=== PATIENT | male | born 1955 | race Caucasian/White ===

== ENCOUNTER 2020-07-18 19:08 | Inpatient (IN) | payer BC ==
[~2020-07-18] VITALS: Ht 180.3 cm; Wt 78.5 kg
--- NOTE | ~2020-07-18 | CON ---
[address] [address] CONSULTATION Name: ANGÉLICA BELTRAN Room: [address] IN .R.#: [id number] Admission: 07/18/20 Attend Phys: Hiren Angulo Discharge: Date of : 57 Report #: [id number] THIS REPORT FOR: cc: KASEY - No family physician/PCP KASEY - No family physician/PCP ~ Tam Cosby MD DATE OF SERVICE: 07/23/2020 PRIMARY CARE PHYSICIAN: ____ Please note at the time of this dictation, the patient was seen and physically examined by myself. REASON FOR CONSULTATION: Elevated LFTs. HISTORY OF PRESENT ILLNESS: This is a 65-year-old male who presented to the Emergency Room with worsening of his rib pain, which had been ongoing bilaterally for the last 4 days and becoming more severe, more so on the right than on the left and it was going around into the middle of his back. He also had a complaint of a cough and that all this the cough and rib pain, which has progressively gotten worse, had been going on for the last 4 days prior to admission. It was noted at that time that he had bilateral pneumonia and was admitted for this reason. At the time of admission, his alkaline phosphatase was 122. The rest of his liver enzymes were completely normal. As he has been here in the hospital, they have continued to elevate each day that he has been here. The patient has been recently started on Plaquenil about a month ago by his PCP for his rheumatoid arthritis. He has also been on lisinopril long-term for some time. Naproxen, he has been taking that as well for a long period of time, which was just recently stopped on this admission. He did get cefepime IV up until yesterday when he was switched over to doxycycline and Augmentin as well. The only other new medicine that he has started to take is glucosamine and ____ with vitamin D for his rheumatoid arthritis. The patient denies ever having any upper or lower scopes done. He does state he has some issues with GERD off and on and he takes an ajey-nws-bsbhtfa medication to help with his acid reflux when it occurs. ALLERGIES: No known drug allergies. MEDICATIONS: From home include his lisinopril, prednisone, levothyroxine, naproxen and Plaquenil. PAST MEDICAL HISTORY: Rheumatoid arthritis since 2006, hypothy[place] [address] CONSULTATION Name: ANGÉLICA BELTRAN Room: [address]#: [id number] Admission: 07/18/20 Attend Phys: Hiren Angulo Discharge: Date of : 57 Report #: [id number] PAST SURGICAL HISTORY: Left inguinal hernia repair and right carpal tunnel release. FAMILY HISTORY: Mother, liver cancer. SOCIAL HISTORY: . Denies any alcohol, tobacco or illegal drug use at this time. REVIEW OF SYSTEMS: Twelve-point review of systems is essentially negative except what is mentioned in the HPI. PHYSICAL EXAMINATION: VITAL SIGNS: Temperature 35.9, pulse 82, respirations 18, blood pressure 148/81. HEART: Regular rate and rhythm. LUNGS: Clear, slightly diminished. ABDOMEN: Soft, positive bowel sounds in all 4 quadrants with no masses or tenderness noted. LABORATORY DATA: Hemoglobin 13.9, white count is 13.9, platelets 489. CRP was 22.4, GFR is 75. PT is 11.9, INR is 1. Total bilirubin 0.4, alkaline phosphatase on is 122 and is now up to 241, ALT on admission was 36 and now 401. AST on admission was 33 and is now 211. Ultrasound of the abdomen was essentially normal with no ductal dilatation noted. IMPRESSION: 1. Elevated liver function tests, likely medication induced, most recent medication that was started was Plaquenil about a month ago, but may consider numerous other agents naproxen, Augmentin, lisinopril can also have an affect as well. 2. Rheumatoid arthritis. 3. Leukocytosis for long-term steroid use. 4. Gastroesophageal reflux disease. 5. Family history of liver cancer in mother. 6. Anticoagulant therapy, Eliquis. PLAN: 1. We will discontinue his Plaquenil since that is the most recent medication that was started and can cause fulminant liver failure. 2. Acute hepatitis panel pending. We will add TARA, ASMA, AMA, and GGTP. 3. CMP tomorrow in the a.m. 4. The patient has never had any endoscopic evaluation, recommended EGD for his GERD and screening colonoscopy as an outpatient. 5. Further recommendations to be made once Dr. Cosby sees the patient later [address] [place] [address] CONSULTATION Name: ANGÉLICA BELTRAN Room: [address] IN M.R.#: [id number] Admission: 07/18/20 Attend Phys: Hiren Angulo Discharge: Date of : 57 Report #: [id number] today. Thank you for allowing us to participate in this patient's care. Please do not hesitate to call with any questions in regard to this consult. By: [id number] Cosby MD /vasquez
[~2020-07-18 19:08] MED LIST: HYDROCODONE-AP1 EAC6 PO; LEVOTHYROXIN0.025 MG PO; LISINOPRIL10 MG PO; NAPROSYN500 MG PO; PREDNISONE 5 MG5 M1 PO
[2020-07-18 19:19] VITALS: BP 175/89
[2020-07-18 20:48] LABS: ABSOLUTE BASOPHILS 0.2 thou/uL (0.0-0.2); ABSOLUTE LYMPHOCYTES 0.9 thou/uL (0.8-5.3); ABSOLUTE MONOCYTES 2.3 thou/uL (0.0-1.2); ABSOLUTE NEUTROPHILS 13.8 thou/uL (1.6-8.1); BASOPHILS 0.9 %; EOSINOPHILS 0.1 %; HEMATOCRIT 43.9 % (42.0-52.0); HEMOGLOBIN 14.6 gm/dL (14.0-18.0); LYMPHOCYTES 5.3 %; MCHC 33.2 g/dL (28.0-37.0); MCV 93.4 fL (80.0-100.0); MONOCYTES 13.3 %; MPV 6.9 fl. (7.2-11.1); NUCLEATED RBCS 0 /100WBC; PLATELET COUNT* 341 thou/uL (150-400); POLYS 80.4 %; RDW-CV 13.4 % (10.5-14.5); WBC 17.1 thou/uL (4.0-11.0)
[2020-07-18 20:55] LABS: CALCIUM 8.4 mg/dL (8.5-10.1); CREATININE 1.3 mg/dL (0.6-1.3); POTASSIUM 4.2 mmol/L (3.5-5.1)
[2020-07-18 21:00] LABS: ALBUMIN 2.5 g/dL (3.4-5.0); TOTAL PROTEIN 7.2 g/dL (6.4-8.2)
[2020-07-18 22:36] LABS: PCO2 33.5 mmHg (35.0-45.0); PO2 83.8 mmHg (75.0-100.0); pH 7.425 (7.340-7.450)
[2020-07-19] VITALS (7 sets, daily range): BP systolic 103–132; BP diastolic 55–77
[2020-07-19 10:42] LABS: URINE BILIRUBIN NEGATIVE (Negative); URINE BLOOD NEGATIVE (Negative); URINE CLARITY CLEAR; URINE COLOR YELLOW; URINE GLUCOSE-RANDOM NEGATIVE (Negative); URINE KETONES NEGATIVE (Negative); URINE LEUKOCYTES-REFLEX NEGATIVE (Negative); URINE NITRITE-REFLEX NEGATIVE (Negative); URINE PROTEIN NEGATIVE (Negative); URINE SPECIFIC GRAVITY >= 1.030 (1.005-1.030); URINE UROBILINOGEN 0.2 E.U./dl (0.2-1.0)
--- NOTE | 2020-07-19 14:07 | EKG ---
[place] [address] ELECTROCARDIOGRAM REPORT Name: ANGÉLICA BELTRAN Room: [place] [address] ADM IN [facility]#: [id number] Admission: 07/18/20 Attend Phys: Latanya Bello Discharge: Date of : 57 Date of Service: 07/18/202026 Report #: [id number] THIS REPORT FOR: //name// [facility] ED Test Date: 2020-07-18 Test Time: 20:27:50 Pat Name: ANGÉLICA BELTRAN Department: Room: [facility] Gender: M Guest Request Runner: [place] : 1955 Requested By: Mary Blas Order Number: [id number] MD: Jamie Mcgrath Measurements Intervals [place] Rate: 100 P: 36 LA: 130 QRS: -25 QRSD: 106 T: 33 QT: 350 QTc: 452 Interpretive Statements Sinus tachycardia Borderline left axis deviation RSR' in V1 or V2, probably normal variant Minimal ST elevation, inferior leads Baseline wander in lead(s) V3 Compared to ECG 03/08/2016 15:29:31 Sinus rhythm no longer present Atrial premature complex(es) no longer present Right ventricular hypertrophy no longer present Left ventricular hypertrophy no longer present Myocardial infarct finding no longer present ST (T wave) deviation still present Electronically Signed On 07-19-2020 14:07:28 [employer] by Jamie Mcgrath [email or web address] <ELECTRONICALLY SIGNED> By: Sue Mcgrath MD, [facility] 07/19/201406 26 26 Sue Mcgrath MD, [facility] /EPI
[2020-07-19] MEDS ORDERED: PLAQUENIL200 MG PO (16:14)
[2020-07-19 19:22] LABS: CALCIUM 8.3 mg/dL (8.5-10.1); POTASSIUM 4.1 mmol/L (3.5-5.1)
[2020-07-19 19:25] LABS: MAGNESIUM 2.6 mg/dL (1.8-2.4); PHOSPHORUS* 2.2 mg/dL (2.5-4.9)
[2020-07-19] MEDS ORDERED: EQ GLUCOSAMINE1 EAC1 PO (21:17)
[2020-07-20] VITALS (7 sets, daily range): BP systolic 114–140; BP diastolic 69–78
[2020-07-20 03:58] LABS: HEMATOCRIT 36.5 % (42.0-52.0); MCH 31.1 pg (26.0-34.0); MCHC 33.1 g/dL (28.0-37.0); MCV 93.9 fL (80.0-100.0); MPV 7.6 fl. (7.2-11.1); NUCLEATED RBCS 0 /100WBC; PLATELET COUNT* 322 thou/uL (150-400); RBC 3.88 mil/uL (4.50-6.00); RDW-CV 13.5 % (10.5-14.5); WBC 21.2 thou/uL (4.0-11.0)
[2020-07-20 04:06] LABS: HEMOGLOBIN 12.1 gm/dL (14.0-18.0)
[2020-07-20 04:19] LABS: CALCIUM 7.7 mg/dL (8.5-10.1); POTASSIUM 4.2 mmol/L (3.5-5.1); TOTAL BILIRUBIN 0.3 mg/dL (<0.1-1.0); TOTAL PROTEIN 5.8 g/dL (6.4-8.2)
[2020-07-20 05:44] LABS: ABSOLUTE LYMPHOCYTES 2.1 thou/uL (0.8-5.3); ABSOLUTE MONOCYTES 1.5 thou/uL (0.0-1.2); ABSOLUTE NEUTROPHILS 17.6 thou/uL (1.6-8.1); ANISOCYTOSIS 1+; PLATELET ESTIMATE ADEQUATE; POIKILOCYTOSIS 1+
[2020-07-20 14:41] LABS: APTT 25.2 Seconds (25.0-31.3); PROTIME 10.9 Seconds (9.20-11.50)
[2020-07-20 14:46] LABS: ALBUMIN 2.2 g/dL (3.4-5.0); CALCIUM 8.2 mg/dL (8.5-10.1); POTASSIUM 3.9 mmol/L (3.5-5.1); TOTAL BILIRUBIN 0.4 mg/dL (<0.1-1.0); TOTAL PROTEIN 6.3 g/dL (6.4-8.2)
[2020-07-21 00:11] VITALS: BP 120/61
[2020-07-21 06:09] VITALS: BP 148/82
[2020-07-21 07:04] LABS: ABSOLUTE BASOPHILS 0.1 thou/uL (0.0-0.2); ABSOLUTE LYMPHOCYTES 0.7 thou/uL (0.8-5.3); ABSOLUTE MONOCYTES 0.8 thou/uL (0.0-1.2); ABSOLUTE NEUTROPHILS 16.9 thou/uL (1.6-8.1); BASOPHILS 0.6 %; HEMOGLOBIN 12.7 gm/dL (14.0-18.0); LYMPHOCYTES 3.9 %; MCH 31.2 pg (26.0-34.0); MCHC 33.3 g/dL (28.0-37.0); MCV 93.5 fL (80.0-100.0); MONOCYTES 4.3 %; MPV 7.7 fl. (7.2-11.1); NUCLEATED RBCS 0 /100WBC; PLATELET COUNT* 388 thou/uL (150-400); POLYS 91.2 %; RBC 4.06 mil/uL (4.50-6.00); RDW-CV 13.6 % (10.5-14.5); WBC 18.5 thou/uL (4.0-11.0)
[2020-07-21 07:34] LABS: ALBUMIN 2.2 g/dL (3.4-5.0); CALCIUM 8.4 mg/dL (8.5-10.1); POTASSIUM 3.9 mmol/L (3.5-5.1); TOTAL BILIRUBIN 0.4 mg/dL (<0.1-1.0); TOTAL PROTEIN 6.1 g/dL (6.4-8.2)
[2020-07-21 07:42] LABS: PREALBUMIN 12.4 mg/dL (18.0-35.7)
[2020-07-21 08:30] VITALS: BP 113/89
[2020-07-21 12:04] VITALS: BP 127/78
--- NOTE | 2020-07-21 14:50 | CON ---
[address] [address] CONSULTATION Name: ANGÉLICA BELTRAN Room: [address] IN .R.#: [id number] Admission: 07/18/20 Attend Phys: Hiren Angulo Discharge: Date of : 57 Report #: [id number] THIS REPORT FOR: cc: KASEY - No family physician/PCP FAM - No family physician/PCP ~ Sameer Fisher MD DATE OF SERVICE: 07/20/2020 REQUESTING PHYSICIAN: Dr. Marcos Devi. INDICATION FOR CONSULTATION: Respiratory failure and pneumonia. HISTORY OF PRESENT ILLNESS: A 65-year-old gentleman. He does have a previous history of smoking; however, he does not carry a diagnosis of COPD. The patient does have rheumatoid arthritis and for this reason, he in fact is on long-term prednisone as well as hydroxychloroquine. The patient is now admitted with bilateral rib pain associated with respiration and coughing. He also has had increase in shortness of breath. He has been coughing, has not brought up much sputum. The patient has had difficulty keeping food down and did have vomiting earlier at home. He does not have any significant swelling of lower extremities. REVIEW OF SYSTEMS: His review of systems for 12 points is negative except as mentioned above. The patient did not describe any upper respiratory complaints. PAST MEDICAL HISTORY: Rheumatoid arthritis, on prednisone and Plaquenil, long-term hypothyroidism, hypertension, hernia repair, carpal tunnel surgery. CURRENT MEDICATIONS: List in [employer] reviewed. HOME MEDICATIONS: List in [employer] reviewed. SOCIAL HISTORY: Previous history of smoking, now discontinued, has had significant alcohol intake in the past as well. No known history of illegal drug use. FAMILY HISTORY: Cancer, diabetes, heart disease and hypertension. PHYSICAL EXAMINATION: GENERAL: Alert, awake and oriented, does not appear to be in any distress. VITAL SIGNS: Has a pulse of 75 and blood pressure 124/69. He is saturating 92%. He is on 2 liters oxygen via nasal cannula. He is afebrile with a temperature of 36.4. [place] [address] CONSULTATION Name: ANGÉLICA BELTRAN Room: [address] IN [facility]#: [id number] Admission: 07/18/20 Attend Phys: Hiren Angulo Discharge: Date of : 57 Report #: [id number] HEENT: Head is normocephalic and atraumatic. NECK: Does not show raised JVP. CHEST: Essentially clear to auscultation. HEART: Regular, no murmur. ABDOMEN: Soft and nontender. EXTREMITIES: Lower extremities no edema, no calf tenderness. LABORATORY DATA: The patient's lab work, which does show significant leukocytosis in [employer] reviewed. The patient's lab work also in [employer] reviewed. Elevation in LFTs this morning is noted. The patient's chest x-ray does show bilateral atypical infiltrates. I do not have a previous chest x-ray available for comparison. ASSESSMENT AND PLAN: 1. Acute hypoxemic respiratory failure. The patient does have infiltrates on the chest x-ray. I feel that COVID-19 is certainly a possibility as well. We will continue to titrate oxygen. 2. Pulmonary infiltrates. Considering his history of long-term prednisone as well as Plaquenil use I broadened antibiotic coverage by switching ceftriaxone to cefepime. He is also on azithromycin, should he decline, I will have a low threshold of adding MRSA coverage. More cultures and serologies are ordered. This includes further testing for COVID-19. The PCR was ordered by Dr. Devi and I fully agree with this. This is pending at this time. I considered starting remdesivir. The patient's LFTs are noted to be elevated. I will go ahead and repeat labs now, see a trend and then make a decision in this regard, will also do a type and screen in case he declines or if the COVID PCR is positive, consider use of convalescent COVID-19 plasma. The patient already is on steroid and I agree with this. 3. Chest pain with respirations, I intend to obtain a CT chest. I ordered a D-dimer first. I will likely order a CTA chest subsequently. 4. Rheumatoid arthritis. 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 5. History of smoking. 6. Past history of alcohol use. 7. Leukocytosis. 8. Deep vein thrombosis prophylaxis. He currently is on prophylactic dose Lovenox. Thanks for this consultation. <ELECTRONICALLY SIGNED> By: Sameer Fisher MD 07/21/20 1450 [id number] [id number] Fisher MD /nt
[2020-07-22 00:55] VITALS: BP 164/89
[2020-07-22 05:01] VITALS: BP 164/90
[2020-07-22 08:00] VITALS: BP 179/94
[2020-07-22 09:43] LABS: ABSOLUTE BASOPHILS 0.1 thou/uL (0.0-0.2); ABSOLUTE LYMPHOCYTES 0.8 thou/uL (0.8-5.3); ABSOLUTE MONOCYTES 0.8 thou/uL (0.0-1.2); ABSOLUTE NEUTROPHILS 11.4 thou/uL (1.6-8.1); BASOPHILS 0.7 %; HEMATOCRIT 36.5 % (42.0-52.0); HEMOGLOBIN 12.2 gm/dL (14.0-18.0); LYMPHOCYTES 6.3 %; MCHC 33.5 g/dL (28.0-37.0); MCV 92.6 fL (80.0-100.0); MONOCYTES 5.9 %; MPV 8.1 fl. (7.2-11.1); NUCLEATED RBCS 0 /100WBC; PLATELET COUNT* 419 thou/uL (150-400); POLYS 87.1 %; RBC 3.94 mil/uL (4.50-6.00); RDW-CV 13.5 % (10.5-14.5); WBC 13.1 thou/uL (4.0-11.0)
[2020-07-22 09:53] LABS: ALBUMIN 2.3 g/dL (3.4-5.0); CALCIUM 7.9 mg/dL (8.5-10.1); CREATININE 0.9 mg/dL (0.6-1.3); POTASSIUM 4.3 mmol/L (3.5-5.1); TOTAL BILIRUBIN 0.5 mg/dL (<0.1-1.0); TOTAL PROTEIN 5.5 g/dL (6.4-8.2)
[2020-07-22] MEDS ORDERED: DOXYCYCLINE 10100 MG PO (11:48)
[2020-07-22] MEDS ORDERED: ELIQUIS5 M1 PO (11:49)
[2020-07-22] MEDS ORDERED: ELIQUIS5 MG PO (11:49)
[2020-07-22 16:18] VITALS: BP 154/78
--- NOTE | 2020-07-22 17:25 | 2DMMODE ---
[place] [address] 2 D/M-MODE ECHOCARDIOGRAM Name: ANGÉLICA BELTRAN Room: [address] ADM [place] .Amber.#: [id number] Admission: 07/18/20 Attend Phys: Latanya Bello Discharge: Date of : 57 Date of Service: 07/22/20 1725 Report #: [id number] THIS REPORT FOR: cc: FAM - No family physician/PCP FAM - No family physician/PCP Chandu Marlow MD [facility] ~ APPROVED REPORT Study performed: 07/22/2020 10:48:46 EXAM: Comprehensive 2D, Doppler, and color-flow Echocardiogram Patient Location: In-Patient Room #: 103 Status: routine BSA: 1.98 HR: 57 bpm BP: 164/90 mmHg Rhythm: NSR Other Information Study Quality: Good Indications Pulmonary Embolism 2D Dimensions IVSd: 11.04 (7-11mm) LVOT Diam: 20.38 (18-24mm) LVDd: 48.89 mm PWd: 10.03 (7-11mm) Ascending Ao: 34.75 (22-36mm) LVDs: 25.64 (25-40mm) Aortic Root: 33.57 mm Volumes Left Atrial Volume (Systole) LA ESV Index: 20.50 mL/m2 Aortic Valve AoV Peak Shad.: 1.21 m/s AO Peak Gr.: 5.82 mmHg LVOT Max P.82 mmHg AO Mean Gr.: 2.96 mmHg LVOT Mean P.22 mmHg LVOT Max V: 1.10 m/s AO V2 VTI: 26.18 cm LVOT Mean V: 0.68 m/s LILI (VTI): 2.91 cm2 LVOT V1 VTI: 23.32 [place] [address] 2 D/M-MODE ECHOCARDIOGRAM Name: ANGÉLICA BELTRAN Room: [address] IN ..#: [id number] Admission: 07/18/20 Attend Phys: Latanya Bello Discharge: Date of : 57 Date of Service: 07/22/20 1725 Report #: [id number] Mitral Valve E/A Ratio: 1.93 MV Decel. Time: 254.85 ms MV E Max Shad.: 1.14 m/s MV PHT: 73.91 ms MVA (PHT): 2.98 cm2 TDI E/Lateral E': 16.29 E/Medial E': 11.40 Medial E' Shad.: 0.10 m/s Lateral E' Shad.: 0.07 m/s Pulmonary Valve PV Peak Shad.: 0.73 m/s PV Peak Gr.: 2.15 mmHg Tricuspid Valve RAP Estimate: 5.00 mmHg TR Peak Gr.: 24.87 mmHg RVSP: 29.00 mmHg PA Pressure: 29.00 mmHg Left Ventricle The left ventricle is normal size. There is normal LV segmental wall motion. There is normal left ventricular wall thickness. Left ventricular systolic function is normal. The left ventricular ejection fraction is within the normal range. LVEF is 55-60%. The left ventricular diastolic function is normal. Right Ventricle The right ventricle is normal size. The right ventricular systolic function is normal. Atria The left atrium size is normal. The right atrium size is normal. Aortic Valve The aortic valve is normal in structure. No aortic regurgitation is present. There is no aortic valvular stenosis. Mitral Valve Mitral valve leaflets appear myxomatous. Moderate mitral regurgitation. No evidence of mitral valve stenosis. There is mitral valve prolapse. Tricuspid Valve The tricuspid valve is normal in structure. [place] [address] 2 D/M-MODE ECHOCARDIOGRAM Name: ANGÉLICA BELTRAN Room: [address]#: [id number] Admission: 07/18/20 Attend Phys: Latanya Bello Discharge: Date of : 57 Date of Service: 07/22/20 1725 Report #: [id number] regurgitation. No pulmonary hypertension. Pulmonic Valve The pulmonary valve is normal in structure. Trace pulmonic regurgitation. Great Vessels The aortic root is normal in size. IVC is normal in size and collapses >50% with inspiration. Pericardium There is no pericardial effusion. <Conclusion> The left ventricle is normal size. There is normal left ventricular wall thickness. Left ventricular systolic function is normal. The left ventricular ejection fraction is within the normal range. LVEF is 55-60%. The left ventricular diastolic function is normal. The left atrium size is normal. The aortic valve is normal in structure. Mitral valve leaflets appear myxomatous. Moderate mitral regurgitation. No evidence of mitral valve stenosis. The tricuspid valve is normal in structure. IVC is normal in size and collapses >50% with inspiration. There is no pericardial effusion. There is normal LV segmental wall motion. There is mitral valve prolapse. <ELECTRONICALLY SIGNED> By: Chandu Marlow MD, FACC 07/22/201724 24 24 Chandu Marlow MD, FACC /INF
[2020-07-22 19:49] VITALS: BP 137/82
[2020-07-23 05:30] VITALS: BP 148/81
[2020-07-23 05:44] LABS: HEMATOCRIT 42.1 % (42.0-52.0); HEMOGLOBIN 13.9 gm/dL (14.0-18.0); MCH 30.8 pg (26.0-34.0); MCV 93.4 fL (80.0-100.0); MPV 7.4 fl. (7.2-11.1); NUCLEATED RBCS 0 /100WBC; PLATELET COUNT* 489 thou/uL (150-400); RBC 4.51 mil/uL (4.50-6.00); RDW-CV 13.5 % (10.5-14.5); WBC 13.5 thou/uL (4.0-11.0)
[2020-07-23 06:00] LABS: ALBUMIN 2.4 g/dL (3.4-5.0); CALCIUM 8.3 mg/dL (8.5-10.1); POTASSIUM 4.4 mmol/L (3.5-5.1); TOTAL BILIRUBIN 0.4 mg/dL (<0.1-1.0); TOTAL PROTEIN 6.6 g/dL (6.4-8.2)
[2020-07-23 06:12] LABS: PREALBUMIN 18.3 mg/dL (18.0-35.7)
[2020-07-23 07:16] LABS: ABSOLUTE LYMPHOCYTES 2.2 thou/uL (0.8-5.3); ABSOLUTE MONOCYTES 0.9 thou/uL (0.0-1.2); ABSOLUTE NEUTROPHILS 10.4 thou/uL (1.6-8.1); ANISOCYTOSIS 1+; PLATELET ESTIMATE INCREASED; POIKILOCYTOSIS 1+
[2020-07-23 08:10] VITALS: BP 126/80
[2020-07-23 09:07] LABS: HEPATITIS B SURFACE AG Negative (Negative)
[2020-07-23 16:40] VITALS: BP 153/90
[2020-07-23 19:53] VITALS: BP 118/76
[2020-07-24 05:20] VITALS: BP 138/89
[2020-07-24 05:31] LABS: ALBUMIN 2.1 g/dL (3.4-5.0); CALCIUM 7.9 mg/dL (8.5-10.1); POTASSIUM 4.2 mmol/L (3.5-5.1); TOTAL BILIRUBIN 0.4 mg/dL (<0.1-1.0); TOTAL PROTEIN 5.6 g/dL (6.4-8.2)
[2020-07-24 07:50] VITALS: BP 121/69
[2020-07-24 10:10] VITALS: BP 138/89
[2020-07-24 14:08] LABS: ANA INTERPRETATION Negative (Negative)
== END 2020-07-24 12:15 | disposition home or self-care (01) | DRG 871 ==
LOC: M.ERS 19:08 → M.2W 22:12 → M.3W 22:12 → M.TBA-ER 22:12 → M.2W 07-19 16:34 → M.ORTHSURG 07-20 22:15 → M.3W 07-22 15:03
PROVIDERS: Internal Medicine; Internal Medicine Critical Care Medicine; Nurse Practitioner Adult Health; Personal Emergency Response Attendant; ADMIT Internal Medicine; ATTEND Internal Medicine
DX: A41.9 Sepsis, unspecified organism (principal); J18.9 Pneumonia, unspecified organism; J96.01 Acute respiratory failure with hypoxia; K21.9 Gastro-esophageal reflux disease without esophagitis; I26.99 Other pulmonary embolism without acute cor pulmonale; M06.9 Rheumatoid arthritis, unspecified; E03.9 Hypothyroidism, unspecified; I10 Essential (primary) hypertension; K40.90 Unilateral inguinal hernia, without obstruction or gangrene, not specified as recurrent; D72.829 Elevated white blood cell count, unspecified; T38.0X5A Adverse effect of glucocorticoids and synthetic analogues, initial encounter; Z79.01 Long term (current) use of anticoagulants; Z83.3 Family history of diabetes mellitus; Z82.49 Family history of ischemic heart disease and other diseases of the circulatory system; Z80.8 Family history of malignant neoplasm of other organs or systems; Y92.89 Other specified places as the place of occurrence of the external cause; Z87.891 Personal history of nicotine dependence; Z79.899 Other long term (current) drug therapy